=== PATIENT | female | born 1965 | race Caucasian/White ===

== ENCOUNTER 2017-02-06 14:34 | Emergency (ER) | payer SELFPAY ==
[~2017-02-06] VITALS: Ht 162.6 cm; Wt 92.7 kg
[2017-02-06 14:44] VITALS: BP 149/87
== END 2017-02-06 17:53 | disposition home or self-care (01) ==
LOC: ED 14:34
DX: S91.332A Puncture wound without foreign body, left foot, initial encounter (principal); E11.9 Type 2 diabetes mellitus without complications; Z79.84 Long term (current) use of oral hypoglycemic drugs; Z79.4 Long term (current) use of insulin; W22.8XXA Striking against or struck by other objects, initial encounter; Y93.89 Activity, other specified; Y99.8 Other external cause status; Y92.89 Other specified places as the place of occurrence of the external cause
CPT/HCPCS: 90715; Q0092

== ENCOUNTER 2017-03-12 19:51 | Emergency (ER) | payer MEDICAID ==
[2017-03-12 21:03] LABS: BASOPHIL % 0.4 % (0-2); PLATELET COUNT 268 x10^3mcL (130-400)
[2017-03-12 21:14] LABS: CALCIUM 9.1 mg/dL (8.5-10.1); CARBON DIOXIDE 29.2 mmol/L (21-32); CHLORIDE SERUM 102 mmol/L (98-107); CREATININE SERUM 0.8 mg/dL (0.6-1.0); GFR1 > 60 mL/min; GLUCOSE SERUM 247 mg/dL (74-106); POTASSIUM SERUM 4.2 mmol/L (3.5-5.1); SODIUM SERUM 139 mmol/L (136-145)
[2017-03-12 21:17] LABS: ALKALINE PHOSPHATASE 83 U/L (46-116); ALT/SGPT 30 U/L (14-59); AMYLASE 47 U/L (25-115); AST/SGOT 23 U/L (15-37); BILIRUBIN TOTAL 0.28 mg/dL (0.20-1.00); LIPASE 76 IU/L (73-393); TOTAL PROTEIN, SERUM 7.3 g/dL (6.4-8.2)
[2017-03-12 21:18] LABS: ALBUMIN 3.1 g/dL (3.4-5.0)
[2017-03-12 23:25] VITALS: BP 125/79
== END 2017-03-12 23:10 | disposition home or self-care (01) ==
LOC: ED 19:51
PROVIDERS: Emergency Medicine
DX: E86.0 Dehydration (principal); E11.65 Type 2 diabetes mellitus with hyperglycemia; R10.9 Unspecified abdominal pain; R11.10 Vomiting, unspecified; R19.7 Diarrhea, unspecified; I10 Essential (primary) hypertension; E78.00 Pure hypercholesterolemia, unspecified; Z79.4 Long term (current) use of insulin; Z79.84 Long term (current) use of oral hypoglycemic drugs; Z88.5 Allergy status to narcotic agent
CPT/HCPCS: 83880; 87046; 87046-59; J2270; J2405; J7030

== ENCOUNTER 2017-08-18 14:03 | Emergency (ER) | payer MEDICAID ==
[~2017-08-18] VITALS: Ht 160 cm; Wt 90.7 kg
[2017-08-18 14:17] VITALS: Ht 160 cm; Wt 90.7 kg
[2017-08-18 14:57] LABS: CALCIUM 8.8 mg/dL (8.5-10.1); CARBON DIOXIDE 23.3 mmol/L (21-32); CHLORIDE SERUM 98 mmol/L (98-107); CREATININE SERUM 0.7 mg/dL (0.6-1.0); GFR1 > 60 mL/min; GLUCOSE SERUM 308 mg/dL (74-106); POTASSIUM SERUM 3.9 mmol/L (3.5-5.1); SODIUM SERUM 131 mmol/L (136-145)
[2017-08-18 15:27] VITALS: BP 154/77
== END 2017-08-18 15:27 | disposition home or self-care (01) ==
LOC: ED 14:03
PROVIDERS: Emergency Medicine
DX: B34.9 Viral infection, unspecified (principal); E11.9 Type 2 diabetes mellitus without complications; E78.00 Pure hypercholesterolemia, unspecified; Z88.5 Allergy status to narcotic agent
CPT/HCPCS: 82962; J1885; J7030; J7613; J7644

== ENCOUNTER 2018-01-03 06:36 | Emergency (ER) | payer MEDICAID ==
[~2018-01-03] VITALS: Ht 162.6 cm; Wt 97.5 kg
[2018-01-03 06:45] VITALS: BP 137/79; Ht 162.6 cm; Wt 97.5 kg
== END 2018-01-03 08:29 | disposition home or self-care (01) ==
LOC: ED 06:36
DX: M17.12 Unilateral primary osteoarthritis, left knee (principal); M25.462 Effusion, left knee; I10 Essential (primary) hypertension; E11.9 Type 2 diabetes mellitus without complications; E78.00 Pure hypercholesterolemia, unspecified; Z88.5 Allergy status to narcotic agent
CPT/HCPCS: Q0092

== ENCOUNTER 2019-11-24 08:06 | Emergency (ER) | payer MEDICAID ==
[~2019-11-24] VITALS: Ht 162.6 cm; Wt 95.7 kg
[2019-11-24 08:15] VITALS: BP 140/78; Ht 162.6 cm; Wt 95.7 kg
== END 2019-11-24 10:28 | disposition home or self-care (01) ==
LOC: ED 08:06
DX: S90.112A Contusion of left great toe without damage to nail, initial encounter (principal); L60.0 Ingrowing nail; E11.9 Type 2 diabetes mellitus without complications; E78.00 Pure hypercholesterolemia, unspecified; I10 Essential (primary) hypertension; Z88.5 Allergy status to narcotic agent; X58.XXXA Exposure to other specified factors, initial encounter; Y93.89 Activity, other specified; Y92.89 Other specified places as the place of occurrence of the external cause; Y99.8 Other external cause status
CPT/HCPCS: 82962; J2001; Q0092